=== PATIENT | male | born 1950 | race Two or more races ===

== ENCOUNTER 2020-07-22 02:36 | Emergency (ER) | payer MEDICARE, BC ==
[~2020-07-22] VITALS: Ht 170.2 cm; Wt 72.6 kg
[2020-07-22] MEDS ORDERED: METF-440 PO (02:47)
[2020-07-22] MEDS ORDERED: PIOG15TA8 PO (02:47)
[2020-07-22] MEDS ORDERED: SITA100T PO (02:47)
--- NOTE | 2020-07-22 02:55 | NUR ---
Dr. Ojeda at bedside for MSE
[2020-07-22] MEDS ORDERED: NEOMY/BACITRA/POLYMYXIN B OINT UD PACKET TP ONE ×2 (03:00→03:09)
[2020-07-22] MEDS ORDERED: TDAP DIPH,PERTUSS,TET VAC/PF 0.5 ML DISP.SYRIN IM ONE ×2 (03:00→03:09)
--- NOTE | 2020-07-22 03:33 | NUR ---
Patient discharged to home in stable condition. Written and verbal after care instructions given. Patient verbalizes understanding of instructions. Stressed follow up or return to ER for worsening s/s. aa/ox4. able to speak in complete sentences in stable condition respirations even and unlabored ambulatory with steady gait no bleeding, no drainage on wound LT FA all belongings with pt
[2020-07-22 03:44] VITALS: BP 119/72
== END 2020-07-22 03:33 | disposition home or self-care (01) ==
LOC: ER 02:40
DX: S63.502A Unspecified sprain of left wrist, initial encounter (principal); S60.031A Contusion of right middle finger without damage to nail, initial encounter; V49.49XA Driver injured in collision with other motor vehicles in traffic accident, initial encounter; Y92.411 Interstate highway as the place of occurrence of the external cause; S60.812A Abrasion of left wrist, initial encounter; S60.419A Abrasion of unspecified finger, initial encounter; E11.9 Type 2 diabetes mellitus without complications; Z79.84 Long term (current) use of oral hypoglycemic drugs
CPT/HCPCS: 73110; 73130; 90715; A4663